=== PATIENT | female | born 2000 | race Caucasian/White ===

== ENCOUNTER 2023-04-22 14:47 | Inpatient (IN) | payer OTHER ==
[~2023-04-22] VITALS: Ht 165.1 cm; Wt 84.4 kg
[2023-04-22] MEDS ORDERED: INSULADS INJ (15:16)
[2023-04-22] MEDS ORDERED: HUMA100I3 SC (15:16)
[2023-04-22] MEDS ORDERED: NS 1,000 ML IV ONE ×2 (18:55→22:15)
[2023-04-22 19:20] LABS: OSMOLALITY SERUM 308 MOSM/KG (275-295)
[2023-04-22 19:25] LABS: ACETONE/KETONE > 4.50 MMOL/L (0.02-0.27); MAGNESIUM LEVEL 1.9 MG/DL (1.8-2.4)
[2023-04-22 19:35] LABS: HCG, SERUM QUANTITATIVE 2120.1 MIU/ML (<4.2)
[2023-04-22] MEDS ORDERED: ONDANSETRON 4MG 2ML VIAL IV ONE (19:35)
[2023-04-22 19:45] LABS: VENOUS BASE EXCESS -17.5 (-2.0-2.0); VENOUS HCO3 9.5 MMOL/L (23.0-27.0); VENOUS O2 SATURATION 97.7 % (60.0-80.0); VENOUS PARTIAL PRESSURE CO2 26.8 mmHg (38.0-50.0); VENOUS PARTIAL PRESSURE O2 118.3 mmHg (30.0-50.0); VENOUS PH 7.166 UNITS (7.330-7.430); VENOUS STANDARD HCO3 11.6 MMOL/L; VENOUS TOTAL CO2 10.3 MMOL/L (24.0-28.0)
[2023-04-22 19:47] LABS: BASO # 0.2 10^3/uL (0.0-0.2); BASO % 0.6 % (0.0-1.0); EOS % 0.1 % (0.0-3.0); HEMATOCRIT 40.7 % (36.0-47.0); HEMOGLOBIN 13.1 g/dl (12.0-15.5); LYMPH % 11.6 % (24.0-44.0); MEAN CORPUSCULAR HEMOGLOBIN 28.6 pg (27.0-33.0); MEAN CORPUSCULAR HGB CONC 32.2 g/dl (32.0-36.5); MEAN CORPUSCULAR VOLUME 88.9 fl (80.0-96.0); MONO % 3.8 % (2.0-8.0); NEUTROPHILS # 21.2 10^3/uL (1.5-8.5); NEUTROPHILS % 81.1 % (36.0-66.0); PLATELET COUNT, AUTOMATED 296 10^3/uL (150-450); RED BLOOD COUNT 4.58 10^6/uL (4.00-5.40); WHITE BLOOD COUNT 26.1 10^3/uL (4.0-10.0)
[2023-04-22 20:04] LABS: APPEARANCE, URINE HAZY (CLEAR); BACTERIA, URINE AUTO NEGATIVE (NEGATIVE); BILIRUBIN, URINE AUTO NEGATIVE (NEGATIVE); BLOOD, URINE BLOOD 3+ (NEGATIVE); GLUCOSE, URINE (UA) AUTO 3+ mg/dL (NEGATIVE); KETONE, URINE AUTO 2+ mg/dL (NEGATIVE); LEUKOCYTE ESTERASE, URINE AUTO TRACE (NEGATIVE); NITRITE, URINE AUTO NEGATIVE (NEGATIVE); PROTEIN, URINE AUTO 2+ mg/dL (NEGATIVE); RBC, URINE AUTO TNTC /HPF (0-3); SPECIFIC GRAVITY URINE AUTO 1.025 (1.002-1.035); SQUAMOUS EPITHELIAL CELL UR AU 0 /HPF (0-6); UROBILINOGEN, URINE AUTO 0.2 mg/dL (0.0-2.0); WBC, URINE AUTO 41 /HPF (0-3)
[2023-04-22] MEDS ORDERED: INSULIN IV RATE CHANGE DOCUMENTATION ML/HR XX SCH (20:05)
[2023-04-22] MEDS ORDERED: HumuLIN R (REGULAR) INSULIN (NovoLIN R) **100U/ML** PER UNIT IV ONE (20:05)
[2023-04-22] MEDS ORDERED: INSULIN REGULAR IN 0.9 % NACL 100 UNIT in IV 1 EA IV SCH ×4 (20:05→21:55)
[2023-04-22 20:06] LABS: COLOR, URINE OTHER (YELLOW)
[2023-04-22 20:17] LABS: CK-MB VALUE MASS < 1.0 NG/ML (<3.6)
[2023-04-22 20:19] LABS: CPK CREATINE PHOSPHOKINASE 50 U/L (34-145)
[2023-04-22 20:21] LABS: BLOOD UREA NITROGEN 23 MG/DL (9-23); CALCIUM LEVEL 9.8 MG/DL (8.5-10.1); CARBON DIOXIDE LEVEL < 10.0 MMOL/L (20-31); CHLORIDE LEVEL 96 MMOL/L (98-107); CREATININE FOR GFR 0.56 MG/DL (0.55-1.30); GLOMERULAR FILTRATION RATE > 60.0 (>60); GLUCOSE, FASTING 591 MG/DL (60-100); SODIUM LEVEL 129 MMOL/L (136-145)
[2023-04-22 20:25] LABS: ALBUMIN 4.3 G/DL (3.2-5.2); BILIRUBIN,DIRECT 0.2 MG/DL (<0.4); BILIRUBIN,TOTAL 0.5 MG/DL (0.3-1.2); TOTAL PROTEIN 7.7 G/DL (5.7-8.2)
[2023-04-22 21:49] LABS: HEMOGLOBIN A1c 10.9 % (4.0-6.0)
[2023-04-22] MEDS ORDERED: METOCLOPRAMIDE INJ 10MG/2ML VIAL IV PRN (21:55)
[2023-04-22 21:58] LABS: RSV AMPLIFICATION NEGATIVE (NEGATIVE)
[2023-04-22] MEDS ORDERED: INSUHUMDS SC (22:29)
[2023-04-22] MEDS ORDERED: INSUDET SC (22:29)
[2023-04-22] MEDS ORDERED: HOME MED LIST COMPLETE! XX SCH (22:30)
[2023-04-22] MEDS ORDERED: MULTTAB20 PO (22:31)
[2023-04-22] MEDS ORDERED: LR 1,000 ML IV SCH (23:15)
[2023-04-22 23:30] VITALS: BP 142/71; TEMP 98.3; O2SAT 100
[2023-04-22 23:31] LABS: BLOOD UREA NITROGEN 22 MG/DL (9-23); CALCIUM LEVEL 9.1 MG/DL (8.5-10.1); CARBON DIOXIDE LEVEL < 10.0 MMOL/L (20-31); CHLORIDE LEVEL 100 MMOL/L (98-107); CREATININE FOR GFR 0.55 MG/DL (0.55-1.30); GLOMERULAR FILTRATION RATE > 60.0 (>60); GLUCOSE, FASTING 524 MG/DL (60-100); PHOSPHORUS LEVEL 4.2 MG/DL (2.5-4.9); SODIUM LEVEL 131 MMOL/L (136-145)
[2023-04-23] VITALS (7 sets, daily range): BP systolic 124–145; BP diastolic 57–75; TEMP 97.9–98.3; O2SAT 98–100
[2023-04-23] MEDS: INSULIN IV RATE CHANGE DOCUMENTATION ML/HR XX SCH ×9 (00:04→13:06)
[2023-04-23 00:26] LABS: HEMATOCRIT 41.5 % (36.0-47.0); HEMOGLOBIN 13.5 g/dl (12.0-15.5)
[2023-04-23] MEDS ORDERED: D5W/0.9% SODIUM CHLORIDE 1,000 ML IV SCH (03:40)
[2023-04-23 04:45] LABS: HEMATOCRIT 37.9 % (36.0-47.0); HEMOGLOBIN 12.6 g/dl (12.0-15.5)
[2023-04-23 05:06] LABS: BLOOD UREA NITROGEN 11 MG/DL (9-23); CALCIUM LEVEL 8.7 MG/DL (8.5-10.1); CARBON DIOXIDE LEVEL 13 MMOL/L (20-31); CHLORIDE LEVEL 105 MMOL/L (98-107); CREATININE FOR GFR 0.46 MG/DL (0.55-1.30); GLOMERULAR FILTRATION RATE > 60.0 (>60); GLUCOSE, FASTING 154 MG/DL (60-100); PHOSPHORUS LEVEL 2.9 MG/DL (2.5-4.9); POTASSIUM SERUM 4.1 MMOL/L (3.5-5.1); SODIUM LEVEL 135 MMOL/L (136-145)
[2023-04-23 10:23] LABS: HEMATOCRIT 37.3 % (36.0-47.0); HEMOGLOBIN 12.4 g/dl (12.0-15.5)
[2023-04-23 10:35] LABS: VENOUS BASE EXCESS -8.2 (-2.0-2.0); VENOUS HCO3 17.2 MMOL/L (23.0-27.0); VENOUS O2 SATURATION 99.2 % (60.0-80.0); VENOUS PARTIAL PRESSURE CO2 34.9 mmHg (38.0-50.0); VENOUS PARTIAL PRESSURE O2 181.9 mmHg (30.0-50.0); VENOUS TOTAL CO2 18.2 MMOL/L (24.0-28.0)
[2023-04-23 10:40] LABS: BLOOD UREA NITROGEN 14 MG/DL (9-23); CALCIUM LEVEL 8.5 MG/DL (8.5-10.1); CARBON DIOXIDE LEVEL 19 MMOL/L (20-31); CHLORIDE LEVEL 105 MMOL/L (98-107); GLOMERULAR FILTRATION RATE > 60.0 (>60); GLUCOSE, FASTING 154 MG/DL (60-100); HCG, SERUM QUANTITATIVE 558.9 MIU/ML (<4.2); MAGNESIUM LEVEL 1.7 MG/DL (1.8-2.4); PHOSPHORUS LEVEL 2.5 MG/DL (2.5-4.9); SODIUM LEVEL 136 MMOL/L (136-145)
[2023-04-23] MEDS ORDERED: ACETAMINOPHEN TAB 650MG DOSE (2X325MG) PO PRN (11:20)
[2023-04-23] MEDS: LEVEMIR (INSULIN DETEMIR) 1 UNITS/0.01ML SC SCH ×2 (12:06→20:56)
[2023-04-23 15:28] LABS: BLOOD UREA NITROGEN 14 MG/DL (9-23); CALCIUM LEVEL 8.4 MG/DL (8.5-10.1); CARBON DIOXIDE LEVEL 18 MMOL/L (20-31); CHLORIDE LEVEL 106 MMOL/L (98-107); CREATININE FOR GFR 0.45 MG/DL (0.55-1.30); GLOMERULAR FILTRATION RATE > 60.0 (>60); GLUCOSE, FASTING 231 MG/DL (60-100); POTASSIUM SERUM 3.9 MMOL/L (3.5-5.1); SODIUM LEVEL 135 MMOL/L (136-145)
[2023-04-23] MEDS ORDERED: DEXTROSE 50% 50ML SYRINGE IV PRN (16:05)
[2023-04-23] MEDS ORDERED: GLUCOSE 4GM CHEW TABLET PO PRN (16:05)
[2023-04-23] MEDS ORDERED: GLUCAGON INJ 1MG VIAL SC PRN (16:05)
[2023-04-23] MEDS ORDERED: LEVEMIR (INSULIN DETEMIR) 1 UNITS/0.01ML SC ONE (16:15)
[2023-04-23] MEDS ORDERED: MAG SULF 1GM/100ML (MAG RUN) 1 GM in IV 1 EA IV ONE (17:00)
[2023-04-23 17:32] LABS: APPEARANCE, URINE CLEAR (CLEAR); BACTERIA, URINE AUTO 1+ (NEGATIVE); BILIRUBIN, URINE AUTO NEGATIVE (NEGATIVE); BLOOD, URINE BLOOD 3+ (NEGATIVE); COLOR, URINE YELLOW (YELLOW); GLUCOSE, URINE (UA) AUTO 3+ mg/dL (NEGATIVE); KETONE, URINE AUTO 2+ mg/dL (NEGATIVE); LEUKOCYTE ESTERASE, URINE AUTO NEGATIVE (NEGATIVE); MUCUS, URINE SMALL (NEGATIVE); NITRITE, URINE AUTO NEGATIVE (NEGATIVE); PROTEIN, URINE AUTO 1+ mg/dL (NEGATIVE); RBC, URINE AUTO 10 /HPF (0-3); SPECIFIC GRAVITY URINE AUTO 1.028 (1.002-1.035); SQUAMOUS EPITHELIAL CELL UR AU 1 /HPF (0-6); UROBILINOGEN, URINE AUTO 0.2 mg/dL (0.0-2.0); WBC, URINE AUTO 6 /HPF (0-3)
[2023-04-23] MEDS: INSULIN LISPRO (NovoLOG) PER UNIT SC SCH (17:52)
[2023-04-23] MEDS ORDERED: INSULIN LISPRO (NovoLOG) PER UNIT SC SCH (21:00)
[2023-04-24 00:05] VITALS: BP 129/63; TEMP 97.6; O2SAT 97
[2023-04-24 04:00] VITALS: BP 115/61; TEMP 97.6; O2SAT 99
[2023-04-24 05:23] LABS: BASO # 0.1 10^3/uL (0.0-0.2); BASO % 0.5 % (0.0-1.0); EOS # 0.1 10^3/uL (0.0-0.5); EOS % 1.2 % (0.0-3.0); HEMATOCRIT 35.6 % (36.0-47.0); HEMOGLOBIN 11.9 g/dl (12.0-15.5); LYMPH # 4.1 10^3/uL (1.5-5.0); LYMPH % 37.1 % (24.0-44.0); MEAN CORPUSCULAR HGB CONC 33.4 g/dl (32.0-36.5); MEAN CORPUSCULAR VOLUME 86.6 fl (80.0-96.0); MONO # 0.6 10^3/uL (0.0-0.8); MONO % 5.3 % (2.0-8.0); NEUTROPHILS # 6.1 10^3/uL (1.5-8.5); NEUTROPHILS % 55.4 % (36.0-66.0); PLATELET COUNT, AUTOMATED 237 10^3/uL (150-450); RED BLOOD COUNT 4.11 10^6/uL (4.00-5.40)
[2023-04-24 05:55] LABS: ALBUMIN 3.2 G/DL (3.2-5.2); ALKALINE PHOSPHATASE 80 U/L (46-116); ALT/SGPT 15 U/L (7.0-40); AST/SGOT < 8 U/L (<34); BILIRUBIN,TOTAL 0.3 MG/DL (0.3-1.2); BLOOD UREA NITROGEN 13 MG/DL (9-23); CALCIUM LEVEL 8.3 MG/DL (8.5-10.1); CARBON DIOXIDE LEVEL 22 MMOL/L (20-31); CHLORIDE LEVEL 106 MMOL/L (98-107); CREATININE FOR GFR 0.35 MG/DL (0.55-1.30); GLOMERULAR FILTRATION RATE > 60.0 (>60); GLUCOSE, FASTING 239 MG/DL (60-100); MAGNESIUM LEVEL 1.7 MG/DL (1.8-2.4); PHOSPHORUS LEVEL 2.3 MG/DL (2.5-4.9); POTASSIUM SERUM 4.2 MMOL/L (3.5-5.1); SODIUM LEVEL 137 MMOL/L (136-145); TOTAL PROTEIN 6.5 G/DL (5.7-8.2)
[2023-04-24 08:00] VITALS: BP 134/76; TEMP 97.8; O2SAT 100
[2023-04-24] MEDS: INSULIN LISPRO (NovoLOG) PER UNIT SC SCH ×2 (08:09→12:13)
[2023-04-24] MEDS: LEVEMIR (INSULIN DETEMIR) 1 UNITS/0.01ML SC SCH (08:09)
[2023-04-24] MEDS ORDERED: LevoFLOXacin IV 500 MG in IV 1 EA IV SCH (10:00)
[2023-04-24 16:00] VITALS: BP 121/72; TEMP 97.3; O2SAT 97
== END 2023-04-24 18:12 | disposition home or self-care (01) | DRG 831 ==
LOC: M ED 14:47 → M ED INP 21:52 → ENRESERV 22:25 → M ICU 23:28
PROVIDERS: ADMIT Internal Medicine Critical Care Medicine; ATTEND Family Medicine
DX: O24.011 Pre-existing type 1 diabetes mellitus, in pregnancy, first trimester (principal); E10.10 Type 1 diabetes mellitus with ketoacidosis without coma; N39.0 Urinary tract infection, site not specified; O23.41 Unspecified infection of urinary tract in pregnancy, first trimester; B96.29 Other Escherichia coli [E. coli] as the cause of diseases classified elsewhere; O20.8 Other hemorrhage in early pregnancy; Z3A.01 Less than 8 weeks gestation of pregnancy